=== PATIENT | male | born 1955 | race Caucasian/White ===

== ENCOUNTER 2024-11-07 17:46 | Emergency (ER) | payer BC ==
[~2024-11-07] VITALS: Ht 182.9 cm; Wt 131.5 kg
[2024-11-07 18:24] LABS: BASOPHILS ABSOLUTE AUTO 0.04 K/mm3 (0.00-0.23); BASOPHILS PERCENT AUTO 0 % (0-2); EOSINOPHILS ABSOLUTE AUTO 0.01 K/mm3 (0.00-0.68); EOSINOPHILS PERCENT AUTO 0 % (0-6); Hemoglobin 13.4 g/dL (13.5-17.5); IMMATURE GRAN ABSOLUTE AUTO 0.05 K/mm3 (0.00-0.10); IMMATURE GRAN PERCENT AUTO 0 % (0-1); LYMPHOCYTES PERCENT AUTO 12 % (21-46); MONOCYTES ABSOLUTE AUTO 1.12 K/mm3 (0.16-1.47); MONOCYTES PERCENT AUTO 10 % (4-13); Mean Corpuscular HGB 32.2 pg (26.0-34.0); Mean Corpuscular HGB Conc 35.3 g/dL (31.5-36.5); Mean Corpuscular Volume 91 fL (80-100); Mean Platelet Volume 11.9 fL (9.1-12.4); NEUTROPHILS ABSOLUTE AUTO 9.22 K/mm3 (1.96-9.15); NEUTROPHILS PERCENT AUTO 78 % (41-73); Platelet Count 153 K/mm3 (150-400); RDW Coefficient Variation 13.2 % (11.7-14.2); RDW Standard Deviation 45.1 fL (35.1-46.3); Red Blood Cell Count 4.16 M/mm3 (4.30-5.90); White Blood Cell Count 11.84 K/mm3 (4.00-11.30)
[2024-11-07 18:57] LABS: Albumin, Blood 3.8 g/dL (3.4-5.0); Bilirubin, Total 0.9 mg/dL (0.1-1.0); Bun/Creatinine Ratio 20.6 (12.0-20.0); Creatinine, Blood 1.36 mg/dL (0.60-1.20); Globulin, Blood 3.7 g/dL (2.2-4.0); Potassium, Blood 3.8 mmol/L (3.5-5.5); Total Protein, Blood 7.5 g/dL (6.4-8.2)
[2024-11-07 21:24] VITALS: BP 147/65
== END 2024-11-07 21:25 | disposition home or self-care (01) ==
LOC: ER 17:46
PROVIDERS: Student in an Organized Health Care Education/Training Program
DX: U07.1 COVID-19 (principal)
CPT/HCPCS: 71046; 80053; 85025; 93005; 93010; 99284-25

== ENCOUNTER 2025-07-23 08:02 | Emergency (ER) | payer MEDICARE ==
[~2025-07-23] VITALS: Ht 182.9 cm; Wt 131.5 kg
[2025-07-23 08:15] VITALS: BP 127/81
[2025-07-23] MEDS ORDERED: OxyCODONE 5 mg/Acetamin 325 mg TABLET PO ONE (09:25)
[2025-07-23] MEDS ORDERED: OXYC5 PO (10:30)
== END 2025-07-23 11:30 | disposition home or self-care (01) ==
LOC: ER 08:02
DX: M16.11 Unilateral primary osteoarthritis, right hip (principal)
CPT/HCPCS: 73502; 99283-25; A9270

== ENCOUNTER 2025-09-23 14:53 | Emergency (ER) | payer MEDICARE, OTHER | END 2025-09-24 01:16 | disposition home or self-care (01) | LOC: ER 14:53 | DX: M96.89 Other intraoperative and postprocedural complications and disorders of the musculoskeletal system (principal); R06.02 Shortness of breath; J02.9 Acute pharyngitis, unspecified; R05.9 Cough, unspecified; E11.9 Type 2 diabetes mellitus without complications ==